=== PATIENT | male | born 1985 | race American Indian/Alaskan Native ===

== ENCOUNTER 2017-04-23 17:23 | Emergency (ER) | payer MEDICAID, OTHER ==
[2017-04-23 17:43] VITALS: TEMP 98.8
[2017-04-23] MEDS ORDERED: Enalaprilat 2.5 MG/2 ML IV ONE (18:03)
--- NOTE | 2017-04-23 18:05 | C.PDOC ---
History Of Present Illness <Alana Nielsen - Last Filed: 04/23/17 18:48> <Ulisses Preciado - Last Filed: 04/23/17 19:32> 32-year-old male, PMHx includes Hypertension (non-compliant with medication, due to insurance issues), presents to the emergency department with complaints of headache, and epigastric abdominal pain, ongoing for a few days. Patient is taking hypertension medication periodically, his last dose was this afternoon, and last one before that was several weeks ago. Denies nausea/vomiting, fevers, shortness of breath, chest pain, dizziness, numbness/weakness, facial droop, speech changes, or any other associated symptoms. No other complaints at this time. (MoralesAlana) History Per: Patient History/Exam Limitations: no limitations Onset/Duration Of Symptoms: Days Current Symptoms Are (Timing): Still Present <Alana Nielsen - Last Filed: 04/23/17 18:48> <Ulisses Preciado - Last Filed: 04/23/17 19:32> Time Seen by Provider: 04/23/17 17:56 Chief Complaint (Nursing): High Blood Pressure Past Medical History Reviewed: Historical Data, Nursing Documentation, Vital Signs - Medical History PMH: Asthma, Bronchitis, HTN Family History: States: No Known Family Hx - Social History Hx Tobacco Use: Yes Hx Alcohol Use: Yes Hx Substance Use: No - Immunization History Hx Tetanus Toxoid Vaccination: No Hx Influenza Vaccination: Yes Hx Pneumococcal Vaccination: Yes <Alana Nielsen - Last Filed: 04/23/17 18:48> Vital Signs: Last Vital Signs Temp 98.8 F 04/23/17 17:28 Pulse 78 04/23/17 19:14 Resp 18 04/23/17 19:14 BP 160/97 H 04/23/17 19:14 Pulse Ox 98 04/23/17 19:14 Review Of Systems Except As Marked, All Systems Reviewed And Found Negative. Constitutional: Negative for: Fever, Chills Cardiovascular: Negative for: Chest Pain, Palpitations Respiratory: Negative for: Shortness of Breath Gastrointestinal: Positive for: Abdominal Pain. Negative for: Nausea, Vomiting Musculoskeletal: Negative for: Neck Pain, Back Pain Neurological: Positive for: Headache. Negative for: Weakness, Numbness, Incoordination, Change in Speech, Confusion, Altered Mental Status, Dizziness <Alana Nielsen - Last Filed: 04/23/17 18:48> Physical Exam - Physical Exam Appears: Non-toxic, No Acute Distress Skin: Warm, Dry, No Rash Head: Atraumatic, Normacephalic Eye(s): bilateral: Normal Inspection, PERRL Nose: Normal Oral Mucosa: Moist Lips: Normal Appearing Neck: Normal ROM Chest: Symmetrical Cardiovascular: Rhythm Regular, No Murmur Respiratory: Normal Breath Sounds, No Accessory Muscle Use Gastrointestinal/Abdominal: Soft, No Tenderness, No Guarding, No Rebound Extremity: Normal ROM Neurological/Psych: Oriented x3, Normal Speech, Normal Cranial Nerves, Normal Motor, Normal Sensation, Other (No focal deficit) <Alana Nielsen Last Filed: 04/23/17 18:48> ED Course And Treatment - Laboratory Results Result Diagrams: 04/23/17 18:16 04/23/17 18:16 ECG: Interpreted By Me, Viewed By Al ECG Rhythm: Sinus Rhythm, R BBB (unchanged from 11/05) ECG Interpretation: No Acute Changes Rate From EC O2 Sat by Pulse Oximetry: 96 Pulse Ox Interpretation: Normal - Radiology CXR: Interpreted by Me CXR Interpretation: Yes: No Acute Disease <Alana Nielsen Last Filed: 04/23/17 18:48> - Laboratory Results Result Diagrams: 04/23/17 18:16 04/23/17 18:16 Lab Interpretation: Normal ECG: Interpreted By Me, Viewed By Al ECG Rhythm: Sinus Rhythm - CT Scan/US head CT Other Rad Studies (CT/US): Radiology Report Reviewed (no acute findings.) Reevaluation Time: 19:29 Reassessment Condition: Improved <Ulisses Preciado E - Last Filed: 04/23/17 19:32> Progress - Data Reviewed Data Reviewed: Lab, Diagnostic imaging, EKG, Old records <Alana Nielsen Last Filed: 04/23/17 18:48> Medical Decision Making <Alana Nielsen Last Filed: 04/23/17 18:48> <Ulisses Preciado E - Last Filed: 04/23/17 19:32> Medical Decision Makin: signed over pt pending head CT results pt with 3 HTN meds, non-compliant x "months" took Lisinopril today only. Eval wnl, head CT neg pt seen and examined, NAD c/o chest discomfort asked for motrin, ? if discomfort is digitially reproducable, EKG reviewed as wnl and no ST changes. LOW susp of cardiac cp. Vasotec IV given prior, so PO vasotec 40 mg given in ED Unclear of doses, will restart ONE of the HTN meds and have PMD restart other meds as needed in the coming week. (Ulisses Preciado) Disposition Counseled Patient/Family Regarding: Diagnosis - Disposition Disposition Time: 19:00 <Alana Nielsen - Last Filed: 04/23/17 18:48> Doctor Will See Patient In The: Office Counseled Patient/Family Regarding: Studies Performed, Need For Followup, Rx Given - Disposition Disposition Time: 19:32 <Ulisses Preciado - Last Filed: 04/23/17 19:32> - Disposition Disposition: HOME/ ROUTINE Condition: GOOD Forms: [facility] (Tajik) - Clinical Impression Clinical Impression: Chest pain, Headache, Uncontrolled hypertension - Scribe Statement The provider has reviewed the documentation as recorded by the Scribe (Duyen Sherman) <Alana Nielsen - Last Filed: 04/23/17 18:48> <Ulisses Preciado - Last Filed: 04/23/17 19:32> - Scribe Statement All medical record entries made by the Scribe were at my direction and personally dictated by me. I have reviewed the chart and agree that the record accurately reflects my personal performance of the history, physical exam, medical decision making, and the department course for this patient. I have also personally directed, reviewed, and agree with the discharge instructions and disposition. (Alana Nielsen) Physician Patient Turnover Patient Signed Over To: Ulisses Preciado Handoff Comments: FU CT, LABS, DISPO <Alana Nielsen - Last Filed: 04/23/17 18:48>
[2017-04-23 18:20] LABS: BASO % 0.5 % (0.0-2.0); EOS % 0.4 % (0.0-4.0); HEMOGLOBIN 12.9 g/dL (12.0-18.0); MEAN CELL VOLUME 94.5 fL (80.0-94.0); MEAN CORPUSCULAR HEMOGLOBIN 31.6 pg (27.0-31.0); MEAN CORPUSCULAR HGB CONC 33.4 g/dL (33.0-37.0); MEAN PLATELET VOLUME 8.9 fL (7.2-11.7); MONO # 0.3 K/uL (0.0-0.8); MONO % 4.9 % (0.0-10.0); NEUT # 5.7 K/uL (1.8-7.0); NEUT % 80.2 % (50.0-75.0); RBC 4.09 Mil/uL (4.40-5.90); RED CELL DISTRIBUTION WIDTH 12.8 % (11.5-14.5); WHITE BLOOD COUNT 7.1 K/uL (4.8-10.8)
[2017-04-23] MEDS ORDERED: Enalaprilat 2.5 MG/2 ML ONE (18:20)
[2017-04-23 18:27] LABS: PROTHROMBIN TIME 11.6 SECONDS (9.7-12.2)
[2017-04-23 18:32] LABS: ALB/GLOB RATIO 1.3 (1.0-2.1); ALBUMIN 4.4 g/dL (3.5-5.0); ALT/SGPT 154 U/L (21-72); AST/SGOT 133 U/L (17-59); BLOOD UREA NITROGEN 9 mg/dL (9-20); CALCIUM 8.9 mg/dl (8.6-10.4); GFR AFRICAN-AMERICAN > 60; GFR NON-AFRICAN AMERICAN > 60; LIPASE 60 U/L (23-300)
--- NOTE | 2017-04-23 19:13 | CT ---
EXAM: CT Head Without Intravenous Contrast EXAM DATE/TIME: 04/23/2017 6:02 PM CLINICAL HISTORY: 32 years old, male; Pain; Headache; Headache not specified; Additional info: MUSTA[facility] HTN TECHNIQUE: Axial computed tomography images of the head/brain without intravenous contrast. All CT scans at this facility use one or more dose reduction techniques, viz.: automated exposure control; ma/kV adjustment per patient size (including targeted exams where dose is matched to indication; i.e. head); or iterative reconstruction technique. Coronal and sagittal reformatted images were created and reviewed. COMPARISON: No relevant prior studies available. FINDINGS: BRAIN: No significant acute abnormality identified. No acute hemorrhage seen within the brain. No acute extra-axial fluid collections visualized. No evidence of significant mass effect within the brain. Normal novoa-white matter differentiation. VENTRICLES: No evidence of significant hydrocephalus. BONES/JOINTS: No acute fractures or other acute bony abnormality noted. SOFT TISSUES: No acute abnormality of the visualized soft tissues is seen. SINUSES: Minimal to mild mucosal thickening in the left maxillary and left ethmoid sinuses. MASTOID AIR CELLS: Mastoid air cells appear clear. IMPRESSION: - No acute findings seen within the brain. - See above for remaining findings.
[2017-04-23 19:15] VITALS: PULSE 78; RESP 18; O2SAT 98
[2017-04-23 19:43] VITALS: BP 168/100
--- NOTE | 2017-04-24 08:31 | RAD ---
PROCEDURE: CHEST RADIOGRAPH, 1 VIEW HISTORY: chest pain COMPARISON: Comparison is made with 11/12/2014 FINDINGS: LUNGS: Clear. PLEURA: No pneumothorax or pleural fluid seen. CARDIOVASCULAR: Normal. OSSEOUS STRUCTURES: No significant abnormalities. VISUALIZED UPPER ABDOMEN: Normal. OTHER FINDINGS: None. IMPRESSION: No active disease.
--- NOTE | 2017-04-25 13:22 | CARD ---
APPROVED REPORT EKG Measurement Heart [id number] <Conclusion> Normal sinus rhythm Right bundle branch block Abnormal ECG
== END 2017-04-23 20:09 | disposition home or self-care (01) ==
LOC: C.ER 17:23
DX: I10 Essential (primary) hypertension (principal); R51 Headache; R07.9 Chest pain, unspecified; Z91.14 Patient's other noncompliance with medication regimen
CPT/HCPCS: 70450; 71010; 80053; 83690; 84484; 85025; 85610; 85730; 93005; 96374; 96375; 99285; J2270

== ENCOUNTER 2017-10-31 02:33 | Observation (INO) | payer MEDICAID ==
[2017-10-31] MEDS ORDERED: Aspirin 325 mg EC Tablets PO STA (02:46)
--- NOTE | 2017-10-31 02:46 | C.PDOC ---
History Of Present Illness Patient presents with chest pressure tightness. has had similar symptoms over the last few years, but tonight it was worse. he is also non compliant with his htn medication. the ems gace 3 sl ntg as well as 324 ASA prio to arrival. Initial bp was 220/150 Time Seen by Provider: 10/31/17 02:46 Chief Complaint (Nursing): Chest Pain History Per: Patient History/Exam Limitations: no limitations Onset/Duration Of Symptoms: Days Current Symptoms Are (Timing): Still Present Context: Other Severity: Moderate Pain Scale Rating Of: 4 Quality: Dull, Tightness, Pressure Associated Symptoms: denies: Nausea, Dyspnea Modifying Factors: None Alleviating Factors: None Nitro Therapy Administered: 3, Per EMS, Partial Relief Recent travel outside of the [place]: No Additional History Per: Family Past Medical History Reviewed: Historical Data, Nursing Documentation, Vital Signs Vital Signs: Last Vital Signs Temp 98.4 F 10/31/17 02:42 Pulse 100 H 10/31/17 03:00 Resp 16 10/31/17 02:42 BP 151/93 H 10/31/17 02:42 Pulse Ox 96 10/31/17 03:00 - Medical History PMH: Asthma, Bronchitis, HTN Family History: States: No Known Family Hx - Social History Hx Tobacco Use: Yes Hx Alcohol Use: Yes Hx Substance Use: No - Immunization History Hx Tetanus Toxoid Vaccination: No Hx Influenza Vaccination: Yes Hx Pneumococcal Vaccination: Yes Physical Exam - Physical Exam Appears: Non-toxic Skin: Warm, Dry Head: Normacephalic Eye(s): bilateral: Normal Inspection Oral Mucosa: Moist Neck: Trachea Midline, Supple Chest: Symmetrical Cardiovascular: Rhythm Regular Respiratory: No Rales, No Rhonchi, No Wheezing Gastrointestinal/Abdominal: Soft, No Tenderness, No Distention Back: Normal Inspection Extremity: Normal ROM Extremity: Bilateral: Atraumatic Pulses: Left Dorsalis Pedis: Normal, Right Dorsalis Pedis: Normal Neurological/Psych: Oriented x3, Normal Speech, Normal Cognition Gait: Steady ED Course And Treatment - Laboratory Results Result Diagrams: 10/31/17 03:04 10/31/17 03:04 ECG: Interpreted By Me, Viewed By Me ECG Rhythm: Sinus Rhythm (111), R BBB O2 Sat by Pulse Oximetry: 96 Pulse Ox Interpretation: Normal - Radiology CXR: Interpreted by Me, Viewed By Me CXR Interpretation: No: Infiltrates, Fracture, Pnemothorax Disposition Discussed With DrMary Lou: Arik Perrin Comment: accepted the patient to his service and took over the care at 5:40 AM Doctor Will See Patient In The: Hospital Counseled Patient/Family Regarding: Studies Performed, Diagnosis - Disposition Disposition: HOSPITALIZED Disposition Time: 02:46 Condition: FAIR Forms: [facility] (Kyrgyz) - Clinical Impression Clinical Impression: Chest pain Decision To Admit - Pt Status Changed To: Hospital Disposition Of: Observation - . Bed Request Type: Telemetry Admitting Physician: Arik Perrin Patient Diagnosis: Chest pain
[2017-10-31 03:13] LABS: BASO # 0.1 K/uL (0.0-0.2); BASO % 1.2 % (0.0-2.0); EOS # 0.2 K/uL (0.0-0.7); EOS % 2.6 % (0.0-4.0); HEMOGLOBIN 13.4 g/dL (12.0-18.0); LYMPH % 49.3 % (20.0-40.0); MEAN CELL VOLUME 95.1 fL (80.0-94.0); MEAN CORPUSCULAR HEMOGLOBIN 31.9 pg (27.0-31.0); MEAN CORPUSCULAR HGB CONC 33.5 g/dL (33.0-37.0); MONO # 0.6 K/uL (0.0-0.8); NEUT # 2.3 K/uL (1.8-7.0); NEUT % 36.9 % (50.0-75.0); NRBC % 0.2 % (0.0-2.0); RBC 4.2 Mil/uL (4.40-5.90); RED CELL DISTRIBUTION WIDTH 12.7 % (11.5-14.5); WHITE BLOOD COUNT 6.2 K/uL (4.8-10.8)
[2017-10-31 03:18] LABS: PROTHROMBIN TIME 11.3 SECONDS (9.7-12.2)
[2017-10-31 04:06] LABS: ALB/GLOB RATIO 1.7 (1.0-2.1); ALBUMIN 4.8 g/dL (3.5-5.0)
[2017-10-31 04:26] LABS: BARBITURATES, UR NEGATIVE (NEGATIVE); BENZODIAZEPINES, UR NEGATIVE (NEGATIVE); OPIATES, UR NEGATIVE (NEGATIVE); PHENCYCLIDINE, UR NEGATIVE (NEGATIVE)
[2017-10-31 04:58] LABS: ALT/SGPT 121 U/L (21-72); AST/SGOT 114 U/L (17-59); BLOOD UREA NITROGEN 14 mg/dL (9-20); CALCIUM 9.2 mg/dl (8.6-10.4); GFR AFRICAN-AMERICAN > 60; GFR NON-AFRICAN AMERICAN > 60; LIPASE 94 U/L (23-300)
--- NOTE | 2017-10-31 07:34 | CP.PCM.PN ---
Subjective - Date & Time of Evaluation Date of Evaluation: 10/31/17 Time of Evaluation: 07:34 - Subjective Subjective: PGY2 Medicine Note for Dr. Daiana Perirn Patient seen and examined this morning at bedside. Patient was admitted for observation due to chest pain overnight. He reports improvement in symptoms stating that his chest pressure is now a 4 out of 10. His significant other is at bedside with him and they are laughing together. He does not wish to stay but wants to make sure he is ok. He currently has no complaints other than the improving chest pressure. Denies fevers, chills, nausea, vomiting, diarrhea, constipation, shortness of breath, palpitations, headaches or vision changes. He has been experiencing chest pain for the last few years but over the past day it has gotten worse. He describes it as a chest pressure ("like someone is stepping on my chest"). He reports that he compliant with his medications but previous notes state non-compliance. 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 He states he has not followed with anyone for years. He states he has "someone over in [facility]" that he is going to follow up with but has not established care yet. He was brought in by ambulance and was given 3 SL nitro tabs and 324 aspirin. His initial BP was 220/150 per ED note. PMH: Hypertension, Asthma (uses inhaler intermittently, not daily, and has never been intubated) and MEN type 2B PSH: denies FamilyHx: denies SocialHx: smokes 4-5 cigarettes per day, drinks 1/2 to 1 pint of liquor per day since he was 12 years old (denies history of withdrawal symptoms), denies other illicit drug use. Allergies: Penicillin Meds: * Enalapril 40mg PO daily * Ibuprofen 600mg PO daily (to keep inflammation of tumors down, per patient) Objective - Vital Signs/Intake and Output Vital Signs (last 24 hours): Temp Pulse Resp BP Pulse Ox 98.8 F 111 H 13 157/86 H 96 10/31/17 06:19 10/31/17 06:19 10/31/17 06:19 10/31/17 06:19 10/31/17 06:19 - Medications Medications: Current Medications Aspirin (Ecotrin) 325 mg PO DAILY [facility] Clopidogrel Bisulfate (Plavix) 75 mg PO DAILY [facility] Enoxaparin Sodium (Lovenox) 40 mg SC DAILY [facility] Pantoprazole Sodium (Protonix Inj) 40 mg IVP DAILY [facility] - Labs Labs: 10/31/17 03:04 10/31/17 03:04 PT 11.3 SECONDS (9.7-12.2) 10/31/17 03:04 INR 1.0 10/31/17 03:04 APTT 34 SECONDS (21-34) 10/31/17 03:04 - Constitutional Appears: Non-toxic, No Acute Distress - Head Exam Head Exam: ATRAUMATIC - Eye Exam Eye Exam: Normal appearance - ENT Exam ENT Exam: Mucous Membranes Moist Additional comments: Large, blubbery lips - Neck Exam Neck Exam: absent: Lymphadenopathy - Respiratory Exam Respiratory Exam: Clear to Ausculation Bilateral, NORMAL BREATHING PATTERN. absent: Accessory Muscle Use, Decreased Breath Sounds, Rales, Rhonchi, Wheezes, Respiratory Distress - Cardiovascular Exam Cardiovascular Exam: REGULAR RHYTHM (~91 on monitor), +S1, +S2 - GI/Abdominal Exam GI & Abdominal Exam: Soft. 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 Rondon - help appreciated EKG 10/31/17: sinus tachycardia @111bpm, RBBB - no change from previous EKGs CXR 10/31/17: No active disease AURA: negative x 2; pending 3rd trop UDS negative Lipase 94 given 3 SL nitro tabs and 324 aspirin by EMS Meds: * Aspirin 325mg PO daily * Plavix 75mg PO daily Hypertensive Urgency per ED note, initial BP 220/150 Current blood pressure 130/84 during exam Restarted home medication of Enalapril 40mg PO daily hx of MEN type 2B Patient reports that he was diagnosed in 2012. He does not currently follow up with anyone. He has someone that he is supposed to follow up with at [facility] but has not made an appointment yet. It was stressed to the patient that it is very important for him to follow up with a specialist as this is a very significant disease with multiple complications. He responded with, "I know. I have tumors all of my body." hx of Alcohol Abuse [facility] protocol Ativan 1mg IVP q3h PRN Prophylactic Care Lovenox 40mg SC daily Protonix 40mg IVP daily DISPO: Patient decided to sign out AMA at approximately 15:15. He stated he was feeling much better and just wanted to go home. He was informed that the medical team had not finished ruling out a myocardial infarction and did not feel safe discharging him yet. Risks including but not limited to myocardial infarction, worsening heart function, arrhythmia, cardiac arrest, coma and/or were explained to patient. He still wanted to sign out AMA and signed paper work. He again told the importance of establishing care and told if new or worsening symptoms start, patient should go to the nearest emergency room. Case discussed and all medical management per Dr. Daiana Campbell Jules PGY2
[2017-10-31 09:44] LABS: CK-MB 2.03 ng/mL (0.0-3.38)
[2017-10-31] MEDS ORDERED: Enoxaparin 40 mg Syringe SC SCH (10:00)
[2017-10-31] MEDS ORDERED: Aspirin 325 mg EC Tablets PO SCH (10:00)
--- NOTE | 2017-10-31 12:00 | CP.PCM.HP ---
History of Present Illness - History of Present Illness History of Present Illness: Patient seen and examined this morning at bedside. Patient was admitted for observation due to chest pain overnight. He reports improvement in symptoms stating that his chest pressure is now a 4 out of 10. His significant other is at bedside with him and they are laughing together. He does not wish to stay but wants to make sure he is ok. He currently has no complaints other than the improving chest pressure. Denies fevers, chills, nausea, vomiting, diarrhea, constipation, shortness of breath, palpitations, headaches or vision changes. He has been experiencing chest pain for the last few years but over the past day it has gotten worse. He describes it as a chest pressure ("like someone is stepping on my chest"). He reports that he compliant with his medications but previous notes state non-compliance. 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 He states he has not followed with anyone for years. He states he has "someone over in [facility]" that he is going to follow up with but has not established care yet. He was brought in by ambulance and was given 3 SL nitro tabs and 324 aspirin. His initial BP was 220/150 per ED note. PMH: Hypertension, Asthma (uses inhaler intermittently, not daily, and has never been intubated) and MEN type 2B PSH: denies FamilyHx: denies SocialHx: smokes 4-5 cigarettes per day, drinks 1/2 to 1 pint of liquor per day since he was 12 years old (denies history of withdrawal symptoms), denies other illicit drug use. Allergies: Penicillin Present on Admission - Present on Admission Any Indicators Present on Admission: No Past Patient History - Infectious Disease Hx of Infectious Diseases: None - Past Medical History & Family History Past Medical History?: Yes - Past Social History Smoking Status: Heavy Smoker > 10 Cigarettes Daily - CARDIAC Hx Hypertension: Yes - PULMONARY Hx Asthma: Yes Hx Bronchitis: Yes - HEENT Hx HEENT Problems: Yes Other/Comment: amblyopia - HEMATOLOGICAL/ONCOLOGICAL Hx Blood Disorders: No - MUSCULOSKELETAL/RHEUMATOLOGICAL Hx Musculoskeletal Disorders: No - GASTROINTESTINAL Hx Gastrointestinal Disorders: No - PSYCHIATRIC Hx Substance Use: No - SURGICAL HISTORY Hx Surgeries: Yes (tonsilectomy) Meds Allergies/Adverse Reactions: Allergies Allergy/AdvReac Type Severity Reaction Status Date / Time Penicillins Allergy Verified 04/23/17 17:34 Physical Exam - Constitutional Appears: Well - Head Exam Head Exam: ATRAUMATIC, NORMAL INSPECTION, NORMOCEPHALIC - Eye Exam Eye Exam: EOMI, Normal appearance, PERRL Pupil Exam: NORMAL ACCOMODATION, PERRL - ENT Exam ENT Exam: Mucous Membranes Moist, Normal Exam - Neck Exam Neck exam: Positive for: Normal Inspection - Respiratory Exam Respiratory Exam: Decreased Breath Sounds - Cardiovascular Exam Cardiovascular Exam: REGULAR RHYTHM, +S1, +S2 - GI/Abdominal Exam GI & Abdominal Exam: Diminished Bowel Sounds, Soft - Rectal Exam Rectal Exam: Deferred Results - Vital Signs Recent Vital Signs: Last Vital Signs Temp 97.6 F 10/31/17 08:10 Pulse 84 10/31/17 08:10 Resp 20 10/31/17 08:10 BP 131/85 10/31/17 08:10 Pulse Ox 96 10/31/17 08:10 - Labs Result Diagrams: 10/31/17 03:04 10/31/17 03:04 Labs: Laboratory Results - last 24 hr 10/31/17 10/31/17 10/31/17 03:04 03:04 03:04 WBC 6.2 RBC 4.20 L Hgb 13.4 Hct 40.0 MCV 95.1 H MCH 31.9 H MCHC 33.5 RDW 12.7 Plt Count 203 MPV 9.0 Neut % (Auto) 36.9 L Lymph % (Auto) 49.3 H [place] % (Auto) 10.0 Eos % (Auto) 2.6 Baso % (Auto) 1.2 Neut # (Auto) 2.3 Lymph # (Auto) 3.0 [place] # (Auto) 0.6 Eos # (Auto) 0.2 Baso # (Auto) 0.1 PT 11.3 INR 1.0 APTT 34 Sodium 145 Potassium 3.7 Chloride 105 Carbon Dioxide 21 L Anion Gap 24 H BUN 14 Creatinine 1.0 Est GFR ( Amer) > 60 Est GFR (Non-Af Amer) > 60 Random Glucose 109 Calcium 9.2 Total Bilirubin 0.6 AST 114 H ALT 121 H D Alkaline Phosphatase 88 Total Creatine Kinase CK-MB (Mass) Troponin I < 0.0120 Total Protein 7.7 Albumin 4.8 Globulin 2.9 Albumin/Globulin Ratio 1.7 Lipase 94 Urine Opiates Screen Urine Methadone Screen Ur Barbiturates Screen Ur Phencyclidine Scrn Ur Amphetamines Screen U Benzodiazepines Scrn U Oth Cocaine Metabols U Cannabinoids Screen 10/31/17 10/31/17 03:51 09:07 WBC RBC Hgb Hct MCV MCH MCHC RDW Plt Count MPV Neut % (Auto) Lymph % (Auto) [place] % (Auto) Eos % (Auto) Baso % (Auto) Neut # (Auto) Lymph # (Auto) [place] # (Auto) Eos # (Auto) Baso # (Auto) PT INR APTT Sodium Potassium Chloride Carbon Dioxide Anion Gap BUN Creatinine Est GFR ( Amer) Est GFR (Non-Af Amer) Random Glucose Calcium Total Bilirubin AST ALT Alkaline Phosphatase Total Creatine Kinase 278 H CK-MB (Mass) 2.03 Troponin I < 0.0120 Total Protein Albumin Globulin Albumin/Globulin Ratio Lipase Urine Opiates Screen Negative Urine Methadone Screen Negative Ur Barbiturates Screen Negative Ur Phencyclidine Scrn Negative Ur Amphetamines Screen Negative U Benzodiazepines Scrn Negative U Oth Cocaine Metabols Negative U Cannabinoids Screen Negative Assessment & Plan - Assessment and Plan (Free Text) Plan: Chest Pain r/o ACS Cardio consulted, Dr. Rondon - help appreciated EKG 10/31/17: sinus tachycardia @111bpm, RBBB - no change from previous EKGs CXR 10/31/17: No active disease AURA: negative x 2; pending 3rd trop UDS negative Lipase 94 given 3 SL nitro tabs and 324 aspirin by EMS Meds: * Aspirin 325mg PO daily * Plavix 75mg PO daily Hypertensive Urgency per ED note, initial BP 220/150 Current blood pressure 130/84 during exam Restarted home medication of Enalapril 40mg PO daily hx of MEN type 2B Patient reports that he was diagnosed in 2012. He does not currently follow up with anyone. He has someone that he is supposed to follow up with at [facility] but has not made an appointment yet. It was stressed to the patient that it is very important for him to follow up with a specialist as this is a very significant disease with multiple complications. He responded with, "I know. I have tumors all of my body." hx of Alcohol Abuse [facility] protocol Ativan 1mg IVP q3h PRN Prophylactic Care Lovenox 40mg SC daily Protonix 40mg IVP daily DISPO: Patient decided to sign out AMA at approximately 15:15. He stated he was feeling much better and just wanted to go home. He was informed that the medical team had not finished ruling out a myocardial infarction and did not feel safe discharging him yet. Risks including but not limited to myocardial infarction, worsening heart function, arrhythmia, cardiac arrest, coma and/or were explained to patient. He still wanted to sign out AMA and signed paper work. He again told the importance of establishing care and told if new or worsening symptoms start, patient should go to the nearest emergency room.
--- NOTE | 2017-10-31 12:34 | RAD ---
Date of service: 10/31/2017 PROCEDURE: CHEST RADIOGRAPH, 1 VIEW HISTORY: chest pain COMPARISON: Chest radiograph dated 04/23/2017. FINDINGS: LUNGS: Clear. PLEURA: No pneumothorax or pleural fluid seen. CARDIOVASCULAR: Normal. OSSEOUS STRUCTURES: No significant abnormalities. VISUALIZED UPPER ABDOMEN: Normal. OTHER FINDINGS: None. IMPRESSION: No active disease.
[2017-10-31 15:15] VITALS: BP 152/97; PULSE 91; RESP 20; TEMP 98; O2SAT 99
== END 2017-10-31 15:26 | disposition left against medical advice (07) ==
LOC: C.ER 02:33 → C.9E 05:39
PROVIDERS: ADMIT Internal Medicine Nephrology; ATTEND Internal Medicine Nephrology
DX: R07.89 Other chest pain (principal); H53.009 Unspecified amblyopia, unspecified eye; I10 Essential (primary) hypertension; J45.909 Unspecified asthma, uncomplicated; Z91.19 Patient's noncompliance with other medical treatment and regimen; F17.210 Nicotine dependence, cigarettes, uncomplicated
CPT/HCPCS: 36415; 71045; 80053; 80324; 80345; 80346; 80349; 80353; 80358; 80361; 83690; 83992; 84484; 85025; 85610; 85730; 93005; 96374; C9113; G0378; J1650